=== PATIENT | male | born 1965 | race Caucasian/White ===

== ENCOUNTER 2022-08-01 01:16 | Emergency (ER) | payer OTHER, SELFPAY ==
[2022-08-01 01:17] VITALS: BP 139/78; PULSE 117; RESP 16; TEMP 36.1; O2SAT 98; BMI 35.9
--- NOTE | 2022-08-01 01:30 | CTR_ITS ---
PROCEDURE INFORMATION: Exam: CT Abdomen And Pelvis Without Contrast Exam date and time: 08/01/2022 2:09 AM Age: 56 years old Clinical indication: Patient HX: PT reports suprapubic abd pain starting suddenly at 1700. Feels a lot of pressure and dribbling urine only. Unable to urinate fully. +nausea, no vomiting. ; Additional info: Rule out kidney stone TECHNIQUE: Imaging protocol: Computed tomography of the abdomen and pelvis without contrast. Radiation optimization: All CT scans at this facility use at least one of these dose optimization techniques: automated exposure control; mA and/or kV adjustment per patient size (includes targeted exams where dose is matched to clinical indication); or iterative reconstruction. Other protocol: This patient has received 0 known CTs and 0 known cardiac nuclear medicine studies in the 12 months prior to the current study. COMPARISON: CT lumbar spine w con [id number] 07/28/2016 10:16 AM RADIATION DOSE METRICS: Total DLP (mGy-cm): 1149.89 FINDINGS: Lungs: The visualized lung bases are clear. Diaphragm: Tiny hiatal hernia. Liver: Borderline hepatic steatosis. No discrete mass. Gallbladder and bile ducts: No calcified gallstones or biliary dilation identified. Pancreas: Unremarkable with no suspicious mass. No ductal dilation. Spleen: The spleen is not enlarged. No suspicious mass is noted. Adrenal glands: Normal. No mass. Kidneys and ureters: No solid renal mass or hydronephrosis. Stomach and bowel: Iecc-[id number] sigmoid diverticulosis. No small bowel obstruction, abscess or free air. Appendix: No evidence of appendicitis. Intraperitoneal space: See Urinary bladder finding. Vasculature: Advanced diffuse vascular calcification noted. Lymph nodes: No enlarged lymph nodes. Urinary bladder: A Corona catheter is present in the markedly collapsed bladder. Perivesicular fat stranding. Pelvic fat stranding. Reproductive: Very large prostate. There is fat stranding around it as well. Bones/joints: Severe diffuse thoracolumbar degenerative change. Lower thoracic old-appearing [id number] compressions. Soft tissues: No acute or suspicious finding noted. CT/CT kidney stone [id number] IMPRESSION: 1. Findings may be related to prostatitis/cystitis. Possible secondary proctitis as well. Advise correlation. 2. Corona catheter present in a collapsed bladder. 3. No small bowel obstruction, abscess or free air. 4. Multiple chronic findings above.
--- NOTE | 2022-08-01 01:32 | W.ED.ABDPA2 ---
Documented by User: BENJIE Stoll 08/01/22 02:36 HPI - Abdominal Pain General: Chief Complaint: Abdominal Pain Stated Complaint: UTI, pain Time Seen by Provider: 08/01/22 01:18 History of Present Illness: Patient is a 6-year-old male who presents to the emergency department with complaints of urinary retention, suprapubic abdominal pain. Patient reports he had developed some suprapubic abdominal pain 2 days ago. Was evaluated in the urgent care. Underwent urinalysis which revealed hematuria and evidence of a UTI. Patient was started on antibiotics and discharged home. Patient reports he was working today and last urinated at 1530. Since that time he has had increasing abdominal discomfort and an inability to urinate. Patient denies any flank pain Denies any visible hematuria Patient denies any fevers but has had chills throughout the day. Patient appears very uncomfortable and anxious Associated Symptoms: Reports chills, hematuria (None visible; but reported on urinalysis) and nausea; Denies bloating, constipation, GI cramping, diarrhea, dysuria, fever(s), hematochezia and vomiting Review of Systems General: Reports: 10 or more systems reviewed and unremarkable except in HPI and below Const: Reports: chills; Denies: fever(s), change in appetite, change in weight, fatigue or malaise Eyes: Denies: change in vision, eye discomfort, eye discharge or eye redness ENMT: Denies: throat pain, enlarged tonsils, odynophagia, hoarseness, ear or mastoid pain, ear discharge, change in hearing, tinnitus, nasal discharge, nasal congestion, post nasal drip or sinus pain Card: Denies: chest pain, palpitations, irregular heart rhythm, edema, dyspnea on exertion, orthopnea or leg pain with exertion Resp: Denies: dyspnea, productive cough, non-productive cough, wheezing, stridor or chest congestion GI: Reports: abdominal pain and nausea; Denies: vomiting, dysphagia, diarrhea, constipation, bloating, GI cramping or hematochezia : Reports: difficulty urinating, urinary urgency, urinary hesitancy, urinary dribbling, oliguria and hematuria (None visible; but reported on urinalysis); Denies: flank pain, dysuria or urinary frequency Musc: Denies: neck pain, back pain, extremity pain, joint pain, joint swelling, joint redness, joint warmth or muscle weakness Skin/Breast: Denies: rash, pruritus, erythema, photosensitivity or new lesions Neuro: Denies: headache(s), numbness in extremities, weakness in extremities, sensory changes, lack of coordination, difficulty walking, frequent falls, dizziness, confusion, Slurred speech present, difficulty communicating thoughts, seizure-like activity or involuntary movements Endo: Denies: polyuria, polydipsia or tired all the time Jason/Lymph: Denies: easy bruising or easy bleeding Physical Exam Const: COMMON NORMALS: no acute distress, patient oriented x3 and alert GENERAL APPEARANCE: cooperative ORIENTATION/CONSCIOUSNESS: Yes awake, Yes oriented to person, Yes oriented to place and Yes oriented to time HENMT: COMMON NORMALS: normocephalic and atraumatic HEAD & SCALP: normocephalic and atraumatic FACE & SINUS: normal facial exam MOUTH: Normal oral and palatal mucosa present THROAT: posterior oropharynx normal Eye: COMMON NORMALS: Equal, round and reactive pupils present, EOMs intact bilaterally, conjunctivae normal and no scleral icterus GENERAL EYE: appearance normal, both eyes and all related structures ALIGNMENT: Yes alignment normal PERIORBITAL: periorbital findings normal CONJUNCTIVA: Yes conjunctivae normal PUPIL: Yes Equal, round and reactive pupils present Neck/C-Spine: COMMON NORMALS: full ROM GENERAL: Yes normal visual inspection Lymph: LYMPHATIC: no lymphadenopathy noted Chest: COMMONS NORMALS: normal inspection of the chest Breast/axilla inspection: Yes no chest deformity, asymmetry, normal contours, no nodules, masses, tenderness Resp: COMMON NORMALS: normal respiratory effort, No retractions, No use of accessory muscles and clear to auscultation bilaterally EFFORT & INSPECTION: Yes able to speak in complete sentences and Yes symmetric chest movement AUSCULTATION: clear to auscultation bilaterally Cardio: COMMON NORMALS: regular rate, regular rhythm and Peripheral pulses 2+ throughout RATE: regular rate RHYTHM: regular rhythm PERIPHERAL PULSES: Peripheral pulses 2+ throughout GI: COMMON NORMALS: Normal to inspection, nondistended, normoactive bowel sounds present, Soft to palpation and No hepatosplenomegaly present; negative for non-tender INSPECTION: Yes normal to inspection AUSCULTATION: Yes normoactive bowel sounds PALPATION: Yes Soft to palpation and Yes No hepatosplenomegaly present RECTAL EXAM: Yes deferred : BLADDER/KIDNEY EXAM: Yes other (Bladder scan reveals greater than 1000 cc) Extremity: COMMON NORMALS: normal to inspection GENERAL: Yes normal exam except as noted Neuro: COMMON NORMALS: patient oriented x3 SENSORIUM/ORIENTATION: Yes alert, Yes oriented to person, Yes oriented to place and Yes oriented to time CRANIAL NERVES: Yes CN normal except as noted Psych: COMMON NORMALS: mental status grossly normal, Normal thought process present, cooperative, activity/motor behavior normal, denies homicidal ideation and denies suicidal ideation THOUGHT PROCESS: Normal thought process present Skin: COMMON NORMALS: no rashes or lesions noted, no wounds and turgor normal GENERAL SKIN EXAM: no rashes or lesions noted and turgor normal Course Vital Signs: Vital signs: Vital Signs Temperature 97.0 F L 08/01/22 01:17 Pulse Rate 117 H 08/01/22 01:17 Respiratory Rate 16 08/01/22 01:17 Blood Pressure 139/78 08/01/22 01:17 Pulse Oximetry 98 08/01/22 01:17 Oxygen Delivery Me thod 08/01/22 01:17 MDM - Abdominal Pain Medical Decision Making Patient was evaluated in the emergency department for urinary retention symptoms. Differential diagnoses include UTI, bladder spasm, acute urinary retention, renal stone, I obtained a CT to rule out kidney stone Obtained a bladder scan which revealed over 1000 cc in the bladder Urine specimen sent to lab I obtained CBC and CMP. Positive leukocytosis of 16,000. IV started, Toradol given. P.o. Flomax given Corona placed and we were able to drain his bladder. Immediate resolution of his complaints. We did obtain a CT to rule out kidney stone. Imaging was negative for acute finding. He does have an elevated white blood cell count. We are going to change his antibiotics due to his worsening pneumology and development of urinary retention while taking Cipro 500 mg. Patient will need to discharge home with a Corona and ongoing Flomax but will need to follow-up with his primary care later this week. Patient needs to increase his fluid intake. Lab Data 08/01/22 01:29 08/01/22 01:29 Labs/Radiology: Radiology Impressions Abdomen/Pelvis CT 08/01/22 01:30 IMPRESSION: 1. Findings may be related to prostatitis/cystitis. Possible secondary proctitis as well. Advise correlation. 2. Corona catheter present in a collapsed bladder. 3. No small bowel obstruction, abscess or free air. 4. Multiple chronic findings above. Laboratory Results WBC 16.7 10^3/uL (4.0-10.0) H 08/01/22 01: RBC 5.12 10^6/uL (4.1-5.3) 08/01/22 01: Hgb 15.0 g/dL (11.7-16.6) 08/01/22 01: Hct 44.2 % (42.0-52.0) 08/01/22 01: MCV 86.3 fl (80-94) 08/01/22 01: MCH 29.3 pg (28.0-34.0) 08/01/22 01: MCHC 33.9 g/dL (30.0-36.0) 08/01/22: RDW 13.0 % (12.1-15.1) 08/01/22 01: Plt Count 193 10^3/cmm (130-400) 08/01/22 01: MPV 11.1 fL (7.4-10.4) H 08/01/22 01: Neut % (Auto) 86.8 % 08/01/22 01: Lymph % (Auto) 6.3 % 08/01/22 01: [place] % (Auto) 5.7 % 08/01/22 01: Eos % (Auto) 0.5 % 08/01/22 01: Baso % (Auto) 0.3 % 08/01/22 01: Neut # (Auto) 14.49 10^3/uL (1.8-7.7) H 08/01/22 01: Lymph # (Auto) 1.1 10^3/uL (0.8-4.8) 08/01/22 01: [place] # (Auto) 1.0 10^3/uL (0.2-0.9) H 08/01/22 01: Eos # (Auto) 0.1 10^3/uL (0.0-0.8) 08/01/22 01: Baso # (Auto) 0.1 10^3/uL (0.0-0.1) 08/01/22 01:29 Nucleated RBC % (auto) 0 % 08/01/22 01: Nucleated RBCs # 0.0 /100WBC 08/01/22 01:29 Sodium 133 mmol/L (136-145) L 08/01/22 01:29 Potassium 3.3 mmol/L (3.5-5.1) L 08/01/22 01:29 Chloride 94 mmol/L (98-107) L 08/01/22 01:29 Carbon Dioxide 23 mmol/L (22-29) 08/01/22 01:29 Anion Gap 19.3 (5-19) H 08/01/22 01:29 BUN 26 mg/dL (6-20) H 08/01/22 01:29 Creatinine 1.0 mg/dL (0.7-1.2) 08/01/22 01:29 GFR Calculation 77.9 mL/min (90-130) L 08/01/22 01:29 Glucose 119 mg/dL (65-115) H 08/01/22 01:29 Calculated Osmolality 282 mOsm/kg (285-295) L 08/01/22 01:29 Calcium 9.1 mg/dL (8.5-10.5) 08/01/22 01:29 Total Bilirubin 0.4 mg/dL (0.15-1.2) 08/01/22 01:29 AST 30 U/L (0-40) 08/01/22 01:29 ALT 31 U/L (0-41) 08/01/22 01:29 Alkaline Phosphatase 78 U/L (40-130) 08/01/22 01:29 Total Protein 7.8 g/dL (6.6-8.7) 08/01/22 01:29 Albumin 4.2 g/dL (3.5-5.2) 08/01/22 01:29 Globulin 3.6 g/dL (1.3-4.6) 08/01/22 01:29 Urine Color Yellow (Yellow) 08/01/22 02:11 Urine Appearance Hazy (CLEAR) A 08/01/22 02:11 Urine pH 5 (5-7) 08/01/22 02:11 Ur Specific [place] 1.010 (1.005-1.030) 08/01/22 02:11 Urine Protein 1+ (Negative) H 08/01/22 02:11 Urine Glucose (UA) Norm (Normal) 08/01/22 02:11 Urine Ketones Negative (Negative) 08/01/22 02:11 Urine Blood 3+ (Negative) H 08/01/22 02:11 Urine Nitrate Positive (Negative) H 08/01/22 02:11 Urine Bilirubin 1+ (Negative) H 08/01/22 02:11 Urine Urobilinogen 1 mg/dL (Negative) H 08/01/22 02:11 Ur Leukocyte Esterase Negative (Negative) 08/01/22 02:11 Urine RBC >100 /hpf (0-2) H 08/01/22 02:11 Urine WBC 5-10 /hpf (0-5) H 08/01/22 02:11 Ur Squamous Epith Cells 0-4 /hpf (0-5) H 08/01/22 02:11 Amorphous Sediment Not Reportable 08/01/22 02:11 Urine Bacteria 1+ /hpf (NONE) H 08/01/22 02:11 Urine Mucus 1+ /hpf 08/01/22 02:11 Discharge Plan Discharge Patient Disposition: Home Clinical Impression: Acute urinary retention, Urinary tract infection Condition: Stable Prescriptions: New Flomax 0.4 mg capsule 0.4 mg PO DAILY Qty: 30 0RF Bactrim DS 800-160 mg tablet 1 tab PO Q12H 10 Days Qty: 20 0RF Discharge Orders: Discharge ED (Routine); Ordered 08/01/22 Ordered By: Mateo Hair Referrals: Jose Luis Jimenez MD [Family Provider] - 1-3 days Discharge Diet: Advance as tolerated Discharge Activity: Resume usual activity Patient Instructions: Urinary Retention in Men (ED), Opioid Safety, Pain Management, Urinary Tract Infection - Men Activity Restrictions/Additional Instructions: Please take medications as prescribed Drain your catheter regularly Follow-up with your primary care doctor. Call Wednesday to make an appointment. Coding Level of Care Code ED [employer] Pump Tender for Chg Fwd Documented by User: Mateo Hair, 08/01/22 03:36 HPI - Abdominal Pain General: Chief Complaint: Abdominal Pain Stated Complaint: UTI, pain Time Seen by Provider: 08/01/22 01:18 Course Vital Signs: Vital signs: Vital Signs Temperature 97.0 F L 08/01/22 01:17 Pulse Rate 117 H 08/01/22 01:17 Respiratory Rate 16 08/01/22 01:17 Blood Pressure 139/78 08/01/22 01:17 Pulse Oximetry 98 08/01/22 01:17 Oxygen Delivery Me thod 08/01/22 01:17 MDM - Abdominal Pain Medical Decision Making Patient was evaluated in the emergency department for urinary retention symptoms. Differential diagnoses include UTI, bladder spasm, acute urinary retention, renal stone, I obtained a CT to rule out kidney stone Obtained a bladder scan which revealed over 1000 cc in the bladder Urine specimen sent to lab I obtained CBC and CMP. Positive leukocytosis of 16,000. IV started, Toradol given. P.o. Flomax given Corona placed and we were able to drain his bladder. Immediate resolution of his complaints. We did obtain a CT to rule out kidney stone. Imaging was negative for acute finding. He does have an elevated white blood cell count. We are going to change his antibiotics due to his worsening pneumology and development of urinary retention while taking Cipro 500 mg. Patient will need to discharge home with a Corona and ongoing Flomax but will need to follow-up with his primary care later this week. Patient needs to increase his fluid intake. This patient was originally seen by MITZI Santiago. I agree with her history and evaluation and management. Patient is feeling much better after placement of Corona catheter. CT s scan shows findings consistent with cystitis or prostatitis.. White blood cell count was 16. Lab Data 08/01/22 01:29 08/01/22 01:29 Labs/Radiology: Radiology Impressions Abdomen/Pelvis CT 08/01/22 01:30 IMPRESSION: 1. Findings may be related to prostatitis/cystitis. Possible secondary proctitis as well. Advise correlation. 2. Corona catheter present in a collapsed bladder. 3. No small bowel obstruction, abscess or free air. 4. Multiple chronic findings above. Laboratory Results WBC 16.7 10^3/uL (4.0-10.0) H 08/01/22 01:29 RBC 5.12 10^6/uL (4.1-5.3) 08/01/22 01: Hgb 15.0 g/dL (11.7-16.6) 08/01/22 01: Hct 44.2 % (42.0-52.0) 08/01/22 01: MCV 86.3 fl (80-94) 08/01/22 01: MCH 29.3 pg (28.0-34.0) 08/01/22 01: MCHC 33.9 g/dL (30.0-36.0) 08/01/22 01: RDW 13.0 % (12.1-15.1) 08/01/22 01: Plt Count 193 10^3/cmm (130-400) 08/01/22 01: MPV 11.1 fL (7.4-10.4) H 08/01/22 01: Neut % (Auto) 86.8 % 08/01/22 01: Lymph % (Auto) 6.3 % 08/01/22 01: [place] % (Auto) 5.7 % 08/01/22 01: Eos % (Auto) 0.5 % 08/01/22 01: Baso % (Auto) 0.3 % 08/01/22 01: Neut # (Auto) 14.49 10^3/uL (1.8-7.7) H 08/01/22 01: Lymph # (Auto) 1.1 10^3/uL (0.8-4.8) 08/01/22 01: [place] # (Auto) 1.0 10^3/uL (0.2-0.9) H 08/01/22 01: Eos # (Auto) 0.1 10^3/uL (0.0-0.8) 08/01/22 01: Baso # (Auto) 0.1 10^3/uL (0.0-0.1) 08/01/22 01: Nucleated RBC % (auto) 0 % 08/01/22 01: Nucleated RBCs # 0.0 /100WBC 08/01/22 01: Sodium 133 mmol/L (136-145) L 08/01/22 01:29 Potassium 3.3 mmol/L (3.5-5.1) L 08/01/22 01:29 Chloride 94 mmol/L (98-107) L 08/01/22 01:29 Carbon Dioxide 23 mmol/L (22-29) 08/01/22 01:29 Anion Gap 19.3 (5-19) H 08/01/22 01:29 BUN 26 mg/dL (6-20) H 08/01/22 01:29 Creatinine 1.0 mg/dL (0.7-1.2) 08/01/22 01:29 GFR Calculation 77.9 mL/min (90-130) L 08/01/22 01:29 Glucose 119 mg/dL (65-115) H 08/01/22 01:29 Calculated Osmolality 282 mOsm/kg (285-295) L 08/01/22 01:29 Calcium 9.1 mg/dL (8.5-10.5) 08/01/22 01:29 Total Bilirubin 0.4 mg/dL (0.15-1.2) 08/01/22 01:29 AST 30 U/L (0-40) 08/01/22 01:29 ALT 31 U/L (0-41) 08/01/22 01:29 Alkaline Phosphatase 78 U/L (40-130) 08/01/22 01:29 Total Protein 7.8 g/dL (6.6-8.7) 08/01/22 01:29 Albumin 4.2 g/dL (3.5-5.2) 08/01/22 01:29 Globulin 3.6 g/dL (1.3-4.6) 08/01/22 01:29 Urine Color Yellow (Yellow) 08/01/22 02:11 Urine Appearance Hazy (CLEAR) A 08/01/22 02:11 Urine pH 5 (5-7) 08/01/22 02:11 Ur Specific [place] 1.010 (1.005-1.030) 08/01/22 02:11 Urine Protein 1+ (Negative) H 08/01/22 02:11 Urine Glucose (UA) Norm (Normal) 08/01/22 02:11 Urine Ketones Negative (Negative) 08/01/22 02:11 Urine Blood 3+ (Negative) H 08/01/22 02:11 Urine Nitrate Positive (Negative) H 08/01/22 02:11 Urine Bilirubin 1+ (Negative) H 08/01/22 02:11 Urine Urobilinogen 1 mg/dL (Negative) H 08/01/22 02:11 Ur Leukocyte Esterase Negative (Negative) 08/01/22 02:11 Urine RBC >100 /hpf (0-2) H 08/01/22 02:11 Urine WBC 5-10 /hpf (0-5) H 08/01/22 02:11 Ur Squamous Epith Cells 0-4 /hpf (0-5) H 08/01/22 02:11 Amorphous Sediment Not Reportable 08/01/22 02:11 Urine Bacteria 1+ /hpf (NONE) H 08/01/22 02:11 Urine Mucus 1+ /hpf 08/01/22 02:11 Discharge Plan Discharge Patient Disposition: Home Clinical Impression: Acute urinary retention, Urinary tract infection Condition: Stable Prescriptions: New Flomax 0.4 mg capsule 0.4 mg PO DAILY Qty: 30 0RF Bactrim DS 800-160 mg tablet 1 tab PO Q12H 10 Days Qty: 20 0RF Discharge Orders: Discharge ED (Routine); Ordered 08/01/22 Ordered By: Mateo Hair Referrals: Jose Luis Jimenez MD [Family Provider] - 1-3 days Discharge Diet: Advance as tolerated Discharge Activity: Resume usual activity Patient Instructions: Urinary Retention in Men (ED), Opioid Safety, Pain Management, Urinary Tract Infection - Men Activity Restrictions/Additional Instructions: Please take medications as prescribed Drain your catheter regularly Follow-up with your primary care doctor. Call Wednesday to make an appointment. Coding Level of Care Code ED [employer] Pump Tender for Jessica Perry
[2022-08-01] MEDS: tamsulosin 0.4 mg Capsule PO (01:43)
[2022-08-01] MEDS: ketorolac 30 mg/mL INJ IVP (01:43)
[2022-08-01 01:47] LABS: Basophils # 0.1 10^3/uL (0.0-0.1); Basophils % 0.3 %; Eosinophils # 0.1 10^3/uL (0.0-0.8); Eosinophils % 0.5 %; Hematocrit 44.2 % (42.0-52.0); Lymphocytes # 1.1 10^3/uL (0.8-4.8); Lymphocytes % 6.3 %; Mean Corpuscular HGB Conc 33.9 g/dL (30.0-36.0); Mean Corpuscular Hemoglobin 29.3 pg (28.0-34.0); Mean Corpuscular Volume 86.3 fl (80-94); Mean Platelet Volume 11.1 fL (7.4-10.4); Monocytes % 5.7 %; Neutrophils # 14.49 10^3/uL (1.8-7.7); Neutrophils % 86.8 %; Nucleated Red Blood Cells % 0 %; Platelet Count 193 10^3/cmm (130-400); Red Blood Count 5.12 10^6/uL (4.1-5.3); White Blood Count 16.7 10^3/uL (4.0-10.0)
[2022-08-01] MEDS: lidocaine 2% Urojet 20 mL TOPICAL (01:48)
[2022-08-01 01:55] LABS: Alanine Aminotransferase 31 U/L (0-41); Albumin Level 4.2 g/dL (3.5-5.2); Alkaline Phosphatase 78 U/L (40-130); Anion Gap 19.3 (5-19); Aspartate Amino Transferase 30 U/L (0-40); Blood Urea Nitrogen 26 mg/dL (6-20); Calcium 9.1 mg/dL (8.5-10.5); Carbon Dioxide 23 mmol/L (22-29); Chloride 94 mmol/L (98-107); Globulin 3.6 g/dL (1.3-4.6); Glomerular Filtration Rate 77.9 mL/min (90-130); Glucose 119 mg/dL (65-115); Osmolality Calculated 282 mOsm/kg (285-295); Potassium 3.3 mmol/L (3.5-5.1); Sodium 133 mmol/L (136-145); Total Bilirubin 0.4 mg/dL (0.15-1.2); Total Protein 7.8 g/dL (6.6-8.7)
[2022-08-01 02:23] VITALS: BP 133/71; PULSE 96; O2SAT 96
[2022-08-01] MEDS: sodium chloride 0.9% 1,000 ML 999 ML IV (02:29)
[2022-08-01 02:37] LABS: Add Urine Microscopic? YES; Bilirubin Urine 1+ (Negative); Blood Urine 3+ (Negative); Glucose Urine UA Norm (Normal); Ketones Urine Negative (Negative); Leukocyte Esterase Urine Negative (Negative); Nitrate Urine Positive (Negative); Protein Urine 1+ (Negative); Urine Appearance Hazy (CLEAR); Urine Color Yellow (Yellow); Urobilinogen Urine 1 mg/dL (Negative); pH Urine 5 (5-7)
[2022-08-01 02:39] LABS: RBC Urine >100 /hpf (0-2)
[2022-08-01 02:40] LABS: Add Urine Culture? Yes; Bacteria Urine 1+ /hpf; Mucus Urine 1+ /hpf; Squamous Epithelial Cell Urine 0-4 /hpf (0-5)
[2022-08-01] MEDS: sulfamethoxazole-trimeth DS 160-800 mg Tablet 1 TAB PO (02:42)
[2022-08-01 03:30] VITALS: BP 149/76; PULSE 95; O2SAT 96
--- NOTE | 2022-08-03 09:32 | DCPLANNER ---
Addendum entered by Jeana Justin 08/20/22 07:53: Patient had a follow up appointment scheduled with urology - patient did attend appointment. Addendum entered by Jeana Justin 08/05/22 13:34: Patient has a follow up appointment scheduled for Sunday, August 07, 2022 at 1:[address] Eaton at urology. Clinic will call patient with appointment information. Original Note: environmental manager had message to schedule a follow up appointment for patient with urology. environmental manager sent patients information to the front office staff at urology. Patients information will be printed and reviewed. Clinic will call patient with appointment information.
== END 2022-08-01 03:50 | disposition home or self-care (01) ==
PROVIDERS: Nurse Practitioner; Emergency Provider Emergency Medicine; Family Provider Family Medicine
DX: N39.0 Urinary tract infection, site not specified (principal); R33.9 Retention of urine, unspecified
CPT/HCPCS: 51702; 51798; 74176; 80053; 81001; 85025; 87086; 96361; 96374; 99285; J1885; J7030

== ENCOUNTER 2022-08-04 05:20 | Emergency (ER) | payer OTHER, SELFPAY ==
[2022-08-04 05:35] VITALS: BP 129/90; PULSE 109; RESP 18; TEMP 36.6; O2SAT 96; BMI 35.9
--- NOTE | 2022-08-04 06:10 | W.ED.MALEGU ---
HPI - Male Genitourinary General: Chief complaint: Urogenital-Male Stated complaint: unable to pee Time Seen by Provider: 08/04/22 05:22 Source: patient Mode of arrival: ambulatory History of Present Illness: 56-year-old male presents to the emergency room with difficulty with urination. He states the symptoms began 5 days ago he was at home and had difficult time urinating generally not feeling well ultimately went in to a walk-in clinic was started on ciprofloxacin. Initially was seen in outside clinic I do not have copies of those records or if any urine culture was done at that time. He started the Cipro unfortunately over the next couple of days he worsened and was seen in the emergency room in the early childhood assistant hours of August 01. He was seen by midlevel and by Dr. Hair at that point he had 2000 mL in his bladder a Coroan catheter was placed for acute urinary retention a CT was done which showed evidence of prostatitis and cystitis. His antibiotics were changed to Bactrim. Yesterday on the patient had a Corona catheter removed by his primary care doctor and unfortunately has not been able to urinate since. He is currently taking Bactrim and Flomax 0.4 nightly he has not previously had difficulty with his urinary retention. No fever sweats or chills. Onset (ago): day(s) (5) Duration: constant Location: abdomen Severity: moderate Quality: aching Relieving factors: urination Associated symptoms: Reports dysuria and urinary retention; Deny discharge, fevers/chills, hematuria, nausea, rash, swelling, urinary incontinence, mass or vomiting Review of Systems Const: Denies: fever(s), chills, body aches, change in appetite, fatigue or malaise ENMT: Denies: throat pain, ear or mastoid pain, nasal discharge or nasal congestion Card: Denies: chest pain, edema, dyspnea on exertion or orthopnea Resp: Denies: dyspnea, productive cough or non-productive cough GI: Denies: nausea or vomiting : Reports: difficulty urinating, dysuria, urinary dribbling, difficulty starting urination and oliguria; Denies: flank pain, urinary incontinence or hematuria Musc: Denies: back pain Skin/Breast: Denies: rash or pruritus PFS ED PFSH: Medical History (Updated 08/04/22 @ 06:20 by Michael Palumbo DO) Acute urinary retention Prostatitis Urinary tract infection Physical Exam Const: GENERAL APPEARANCE: cooperative ORIENTATION/CONSCIOUSNESS: Yes awake, Yes oriented to person, Yes oriented to place and Yes oriented to time HENMT: COMMON NORMALS: normocephalic, atraumatic and hearing grossly normal bilaterally HEAD & SCALP: normocephalic and atraumatic Resp: COMMON NORMALS: normal respiratory effort, No retractions, No use of accessory muscles and clear to auscultation bilaterally AUSCULTATION: clear to auscultation bilaterally Cardio: COMMON NORMALS: regular rate, regular rhythm and No murmurs present (Cardio) RATE: regular rate RHYTHM: regular rhythm GI: COMMON NORMALS: Soft to palpation and No hepatosplenomegaly present AUSCULTATION: Yes normoactive bowel sounds PALPATION: Yes Soft to palpation, No Tenderness to palpation present (GI), No Guarding due to palpation present (GI) and Yes No hepatosplenomegaly present OTHER: Corona placed by staff prior to my examination of the patient. Bladder was already decompressed and nontender had over 800 in the Corona bag at the time I examined him Extremity: COMMON NORMALS: normal to inspection, capillary refill normal, no clubbing, cyanosis or edema, no calf tenderness and no pedal edema Neuro: SENSORIUM/ORIENTATION: Yes oriented to person, Yes oriented to place and Yes oriented to time Skin: COMMON NORMALS: no rashes or lesions noted GENERAL SKIN EXAM: no rashes or lesions noted Course Vital Signs: Vital signs: Vital Signs Temperature 97.9 F 08/04/22 05:35 Pulse Rate 109 H 08/04/22 05:35 Respiratory Rate 18 08/04/22 05:35 Blood Pressure 129/90 08/04/22 05:35 Pulse Oximetry 96 08/04/22 05:35 Oxygen Delivery Me thod 08/04/22 05:35 MDM - Male Medical Decision Making Acute urinary retention prostatitis. I did not repeat his CT. I think his main issue at this point is Corona catheter will need to remain in for a longer period of time than it was. We will increase his Flomax to 0.8. Urine culture at the earlier visit had no gross. At this point I would leave him on the Bactrim. Corona catheter should remain in until he follows up with urology food operations manager will make arrangements for urology follow-up. Medical Records I reviewed the patient's medical records. Lab Data I reviewed the patient's lab results. 08/04/22 06:10 08/04/22 06:10 Laboratory Results WBC 9.7 10^3/uL (4.0-10.0) 08/04/22 06:10 RBC 5.27 10^6/uL (4.1-5.3) 08/04/22 06:10 Hgb 15.2 g/dL (11.7-16.6) 08/04/22 06:10 Hct 44.3 % (42.0-52.0) 08/04/22 06:10 MCV 84.1 fl (80-94) 08/04/22 06:10 MCH 28.8 pg (28.0-34.0) 08/04/22 06:10 MCHC 34.3 g/dL (30.0-36.0) 08/04/22 06:10 RDW 13.2 % (12.1-15.1) 08/04/22 06:10 Plt Count 281 10^3/cmm (130-400) 08/04/22 06:10 MPV 10.3 fL (7.4-10.4) 08/04/22 06:10 Neut % (Auto) 65.9 % 08/04/22 06:10 Lymph % (Auto) 20.1 % 08/04/22 06:10 [place] % (Auto) 11.2 % 08/04/22 06:10 Eos % (Auto) 1.3 % 08/04/22 06:10 Baso % (Auto) 0.5 % 08/04/22 06:10 Neut # (Auto) 6.40 10^3/uL (1.8-7.7) 08/04/22 06:10 Lymph # (Auto) 2.0 10^3/uL (0.8-4.8) 08/04/22 06:10 [place] # (Auto) 1.1 10^3/uL (0.2-0.9) H 08/04/22 06:10 Eos # (Auto) 0.1 10^3/uL (0.0-0.8) 08/04/22 06:10 Baso # (Auto) 0.1 10^3/uL (0.0-0.1) 08/04/22 06:10 Nucleated RBC % (auto) 0 % 08/04/22 06:10 Nucleated RBCs # 0.0 /100WBC 08/04/22 06:10 Sodium 133 mmol/L (136-145) L 08/04/22 06:10 Potassium 3.6 mmol/L (3.5-5.1) 08/04/22 06:10 Chloride 93 mmol/L (98-107) L 08/04/22 06:10 Carbon Dioxide 23 mmol/L (22-29) 08/04/22 06:10 Anion Gap 20.6 (5-19) H 08/04/22 06:10 BUN 16 mg/dL (6-20) 08/04/22 06:10 Creatinine 0.9 mg/dL (0.7-1.2) 08/04/22 06:10 GFR Calculation 87.9 mL/min (90-130) L 08/04/22 06:10 Glucose 101 mg/dL (65-115) 08/04/22 06:10 Calculated Osmolality 277 mOsm/kg (285-295) L 08/04/22 06:10 Calcium 9.2 mg/dL (8.5-10.5) 08/04/22 06:10 Discharge Plan Discharge Patient Disposition: Home Clinical Impression: Prostatitis, Acute urinary retention Condition: Stable Prescriptions: Changed Flomax 0.4 mg capsule 0.8 mg PO DAILY Qty: 60 0RF No Action Bactrim DS 800-160 mg tablet 1 tab PO Q12H 10 Days Qty: 20 0RF Discharge Orders: Discharge ED (Routine); Ordered 08/04/22 Ordered By: Michael Palumbo Referrals: Jose Luis Jimenez MD [Primary Care Provider] - Discharge Diet: Usual diet Discharge Activity: Increase activity as tolerated Patient Instructions: Prostatitis (ED), Urinary Retention in Men (ED), Opioid Safety, Pain Management Activity Restrictions/Additional Instructions: You are seen today for acute urinary retention prostatitis. Urinary retention is caused by prostatitis continue the current antibiotic increase your Flomax to 2 capsules at bedtime. food operations manager will make arrangements for follow-up with urology sometime within the next week. Coding Level of Care Code ED [place] Supervisor for Jessica Perry
[2022-08-04 06:18] LABS: Basophils # 0.1 10^3/uL (0.0-0.1); Basophils % 0.5 %; Eosinophils # 0.1 10^3/uL (0.0-0.8); Eosinophils % 1.3 %; Hematocrit 44.3 % (42.0-52.0); Hemoglobin 15.2 g/dL (11.7-16.6); Lymphocytes % 20.1 %; Mean Corpuscular HGB Conc 34.3 g/dL (30.0-36.0); Mean Corpuscular Hemoglobin 28.8 pg (28.0-34.0); Mean Corpuscular Volume 84.1 fl (80-94); Mean Platelet Volume 10.3 fL (7.4-10.4); Monocytes # 1.1 10^3/uL (0.2-0.9); Monocytes % 11.2 %; Neutrophils % 65.9 %; Nucleated Red Blood Cells % 0 %; Platelet Count 281 10^3/cmm (130-400); Red Blood Count 5.27 10^6/uL (4.1-5.3); Red Cell Distribution Width 13.2 % (12.1-15.1); White Blood Count 9.7 10^3/uL (4.0-10.0)
[2022-08-04 06:38] LABS: Anion Gap 20.6 (5-19); Blood Urea Nitrogen 16 mg/dL (6-20); Calcium 9.2 mg/dL (8.5-10.5); Carbon Dioxide 23 mmol/L (22-29); Chloride 93 mmol/L (98-107); Creatinine Clr Calc Pharmacy 125.6035; Glomerular Filtration Rate 87.9 mL/min (90-130); Glucose 101 mg/dL (65-115); Osmolality Calculated 277 mOsm/kg (285-295); Potassium 3.6 mmol/L (3.5-5.1); Sodium 133 mmol/L (136-145)
--- NOTE | 2022-08-04 09:17 | DCPLANNER ---
Addendum entered by Jeana Justin 08/20/22 08:02: Patient had a follow up appointment scheduled with urology - patient did attend appointment. Addendum entered by Jeana Justin 08/05/22 11:12: Patient has a follow up appointment scheduled for Sunday, August 14, 2022 at 8:[address] Eaton at urology. Clinic will call patient with appointment information. Original Note: manager disaster recovery had message to schedule a follow up appointment for patient with urology. manager disaster recovery sent patients information to the front office staff at urology. Patients information will be printed and reviewed. Clinic will call patient with appointment information.
== END 2022-08-04 07:22 | disposition home or self-care (01) ==
PROVIDERS: Emergency Provider Family Medicine; PCP Family Medicine
DX: R33.9 Retention of urine, unspecified (principal); N41.9 Inflammatory disease of prostate, unspecified; Z87.440 Personal history of urinary (tract) infections
CPT/HCPCS: 51702; 80048; 85025; 99283

== ENCOUNTER 2023-10-24 03:23 | Emergency (ER) | payer OTHER, SELFPAY ==
--- NOTE | 2023-10-24 03:27 | ECG_ITS ---
[facility] Test Date: 2023-10-24 Pat Name: Pineda Brantley Department: Room: Gender: Male Condominium Manager: : 1965 Requested By: Mateo Mercado Order Number: [id number] Giovanna MD: Joseph Kline M.D. Measurements Intervals [place] Rate: 85 P: 59 IL: 137 QRS: 64 QRSD: 86 T: 60 QT: 362 QTc: 432 Interpretive Statements SINUS RHYTHM WITH SINUS ARRHYTHMIA No previous ECG available for comparison Electronically Signed On 10-24-2023 12:02:38 CDT by Joseph Kline M.D. [id number]
[2023-10-24 03:35] VITALS: BP 144/89; PULSE 80; RESP 18; TEMP 36.4; O2SAT 99
[2023-10-24 04:14] VITALS: BP 150/117; PULSE 80; RESP 15; O2SAT 96
--- NOTE | 2023-10-24 04:28 | XRR_ITS ---
PROCEDURE INFORMATION: Exam: XR Chest Exam date and time: 10/24/2023 4:30 AM Age: 58 years old Clinical indication: Chest pressure; Patient HX: C/O chest pain; Additional info: Cp TECHNIQUE: Imaging protocol: Radiologic exam of the chest. Views: 1 view. COMPARISON: CT kidney stone [id number] 08/01/2022 2:09 AM FINDINGS: Lungs: No consolidation. Pleural spaces: Unremarkable. No pleural effusion. No pneumothorax. Heart/Mediastinum: No cardiomegaly. Bones/joints: No acute fracture. Surgical clips project over the neck tissues in the midline. XR/XR chest 1V portable [id number] IMPRESSION: No acute findings.
[2023-10-24 04:38] VITALS: BP 134/98; PULSE 83; RESP 14; O2SAT 95
[2023-10-24 04:40] LABS: Basophils # 0.1 10^3/uL (0.0-0.1); Basophils % 0.8 %; Eosinophils # 0.2 10^3/uL (0.0-0.8); Eosinophils % 2.9 %; Hematocrit 46.6 % (37-53); Lymphocytes # 2.2 10^3/uL (0.8-4.8); Mean Corpuscular HGB Conc 33.3 g/dL (30-55); Mean Corpuscular Hemoglobin 29.5 pg (27-33); Mean Corpuscular Volume 88.6 fl (82-101); Mean Platelet Volume 10.7 fL (7.4-10.4); Monocytes # 0.7 10^3/uL (0.2-0.9); Monocytes % 8.8 %; Neutrophils # 4.83 10^3/uL (1.8-7.7); Neutrophils % 60.4 %; Nucleated Red Blood Cells % 0 %; Platelet Count 246 10^3/cmm (157-399); Red Blood Count 5.26 10^6/uL (3.85-5.65); Red Cell Distribution Width 13.5 % (12.1-15.1); White Blood Count 7.99 10^3/uL (3.29-11.43)
[2023-10-24 05:02] LABS: Troponin(5th) Baseline 10 ng/L (0-15)
[2023-10-24 05:11] LABS: Alanine Aminotransferase 33 U/L (0-41); Albumin Level 4.3 g/dL (3.5-5.2); Alkaline Phosphatase 68 U/L (40-130); Aspartate Amino Transferase 21 U/L (0-40); Blood Urea Nitrogen 20 mg/dL (6-20); Calcium 9.1 mg/dL (8.5-10.5); Carbon Dioxide 27 mmol/L (22-29); Chloride 100 mmol/L (98-107); Creatinine Clr Calc Pharmacy 139.3408; Globulin 2.8 g/dL (1.3-4.6); Glucose 114 mg/dL (65-115); NT Pro B Type Natriuretic Pept < 36 pg/mL (0-125); Osmolality Calculated 287 mOsm/kg (285-295); Sodium 137 mmol/L (136-145); Total Bilirubin 0.2 mg/dL (0.15-1.2); Total Protein 7.1 g/dL (6.6-8.7)
--- NOTE | 2023-10-24 05:26 | ED_ITS ---
HPI - Chest Pain 2 General: Chief Complaint: Chest Pain Stated Complaint: Chest Pain Time Seen by Provider: 10/24/23 04:19 History of Present Illness: 58-year-old male with no prior history o f coronary disease. He does have a history of hypertension. He presents with left-sided chest discomfort that radiates into his back and up to the shoulder on and off for the past couple of weeks. It was worse this morning and woke him up. He is mildly short of breath with it. Associated symptoms: Deny abdominal pain, dyspnea, fever(s), palpitations or vomiting Review of Systems 2 Const: Denies: fever(s) or chills ENMT: Denies: throat pain Card: Reports: chest pain; Denies: palpitations Resp: Denies: dyspnea, productive cough or non-productive cough GI: Denies: abdominal pain or vomiting PFSH ED 2 PFSH: Medical History Acute urinary retention BPH loc w urin obs/LUTS Prostatitis Urinary tract infection Family History Mother Hypertension COPD (chronic obstructive pulmonary disease) Father , IN HIS 40'S Heart attack Social History Smoking and tobacco/nicotine status: current every day tobacco/nicotine user smokeless tobacco Alcohol intake: never Marital status: Current occupational status: employed Physical Exam 2 Const: COMMON NORMALS: no acute distress GENERAL APPEARANCE: cooperative; not ill appearing and not frail appearing HENMT: COMMON NORMALS: normocephalic, atraumatic and Normal external nose present HEAD & SCALP: normocephalic and atraumatic FACE & SINUS: normal facial exam and face symmetric NOSE: Normal external nose present Eye: COMMON NORMALS: Equal, round and reactive pupils present and EOMs intact bilaterally PUPIL: Yes Equal, round and reactive pupils present Neck/C-Spine: GENERAL: Yes trachea midline Chest: CHEST: Yes Symmetrical chest wall rise and Yes tenderness (Left lateral) Resp: COMMON NORMALS: normal respiratory effort, No retractions, No use of accessory muscles and clear to auscultation bilaterally AUSCULTATION: clear to auscultation bilaterally Cardio: COMMON NORMALS: regular rate and regular rhythm RATE: regular rate RHYTHM: regular rhythm GI: COMMON NORMALS: Normal to inspection, nondistended, normoactive bowel sounds present Extremity: COMMON NORMALS: no pedal edema Neuro: ALDAIR COMA SCALE: document GCS findings [place] coma scale eye opening: Spontaneous [place] coma scale verbal response: Orientated [place] coma scale motor response: Obey commands [place] coma scale total score: 15 S ENSORY EXAM: Yes extremities (intact) Psych: COMMON NORMALS: speech normal SPEECH: Yes normal speech Skin: COMMON NORMALS: no rashes or lesions noted GENERAL SKIN EXAM: no rashes or lesions noted Course 2 Vital Signs: Vital signs: Vital Signs Temperature 97.6 F 10/24/23 03:35 Pulse Rate 85 10/24/23 05:40 Respiratory Rate 16 10/24/23 05:40 Blood Pressure 127/81 10/24/23 05:40 Pulse Oximetry 95 10/24/23 05:40 Oxygen Delivery Me thod Room Air 10/24/23 03:35 MDM - Chest Pain Medical Decision Making 58-year-old male with chest discomfort that is reproducible on exam. It has been there on and off for 2 weeks. CBC is normal. BMP is normal. Troponin is 10. BNP is less than 36. Chest x-ray is not remarkable. Pain is mildly reproducible on palpation of his left chest. Electrocardiogram reveals sinus rhythm with a rate of 85. There are no acute ST wave changes. As this pain has been going on for 2 weeks, is reproducible, and he has negative troponin with no EKG changes he will be allowed discharge. Lab Data 10/24/23 04:09 10/24/23 04:09 Radiology Impressions Chest X-Ray 10/24/23 04:28 IMPRESSION: No acute findings. Laboratory Results WBC 7.99 10^3/uL (3.29-11.43) 10/24/23 04:09 RBC 5.26 10^6/uL (3.85-5.65) 10/24/23 04:09 Hgb 15.50 g/dL (11.27-16.99) 10/24/23 04:09 Hct 46.6 % (37-53) 10/24/23 04:09 MCV 88.6 fl (82-101) 10/24/23 04:09 MCH 29.5 pg (27-33) 10/24/23 04:09 MCHC 33.3 g/dL (30-55) 10/24/23 04:09 RDW 13.5 % (12.1-15.1) 10/24/23 04:09 Plt Count 246 10^3/cmm (157-399) 10/24/23 04:09 MPV 10.7 fL (7.4-10.4) H 10/24/23 04:09 Neut % (Auto) 60.4 % 10/24/23 04:09 Lymph % (Auto) 27.0 % 10/24/23 04:09 [place] % (Auto) 8.8 % 10/24/23 04:09 Eos % (Auto) 2.9 % 10/24/23 04:09 Baso % (Auto) 0.8 % 10/24/23 04:09 Neut # (Auto) 4.83 10^3/uL (1.8-7.7) 10/24/23 04:09 Lymph # (Auto) 2.2 10^3/uL (0.8-4.8) 10/24/23 04:09 [place] # (Auto) 0.7 10^3/uL (0.2-0.9) 10/24/23 04:09 Eos # (Auto) 0.2 10^3/uL (0.0-0.8) 10/24/23 04:09 Baso # (Auto) 0.1 10^3/uL (0.0-0.1) 10/24/23 04:09 Nucleated RBC % (auto) 0 % 10/24/23 04:09 Nucleated RBCs # 0.0 /100WBC 10/24/23 04:09 Sodium 137 mmol/L (136-145) 10/24/23 04:09 Potassium 4.0 mmol/L (3.5-5.1) 10/24/23 04:09 Chloride 100 mmol/L (98-107) 10/24/23 04:09 Carbon Dioxide 27 mmol/L (22-29) 10/24/23 04:09 Anion Gap 14.0 (5-19) 10/24/23 04:09 BUN 20 mg/dL (6-20) 10/24/23 04:09 Creatinine 0.8 mg/dL (0.7-1.2) 10/24/23 04:09 GFR Calculation 100.0 mL/min (90-130) 10/24/23 04:09 Glucose 114 mg/dL (65-115) 10/24/23 04:09 Calculated Osmolality 287 mOsm/kg (285-295) 10/24/23 04:09 Calcium 9.1 mg/dL (8.5-10.5) 10/24/23 04:09 Total Bilirubin 0.2 mg/dL (0.15-1.2) 10/24/23 04:09 AST 21 U/L (0-40) 10/24/23 04:09 ALT 33 U/L (0-41) 10/24/23 04:09 Alkaline Phosphatase 68 U/L (40-130) 10/24/23 04:09 Troponin T Baseline 10 ng/L (0-15) 10/24/23 04:09 NT-Pro-B Natriuret Pep < 36 pg/mL (0-125) 10/24/23 04:09 Total Protein 7.1 g/dL (6.6-8.7) 10/24/23 04:09 Albumin 4.3 g/dL (3.5-5.2) 10/24/23 04:09 Globulin 2.8 g/dL (1.3-4.6) 10/24/23 04:09 All radiology interpretation(s) finalized by discharge Discharge Plan Discharge Patient Disposition: Home Clinical Impression: Chest pain Condition: Stable Prescriptions: New ketorolac 10 mg tablet 10 mg PO TID PRN (Reason: pain) Qty: 12 0RF No Action allopurinol 100 mg tablet 100 mg PO DAILY meloxicam 15 mg tablet 15 mg PO DAILY lisinopril 5 mg tablet 5 mg PO DAILY hydrocodone-acetaminophen 7.5-325 mg tablet 1 tab PO BID PRN amlodipine 10 mg tablet 10 mg PO DAILY Flomax 0.4 mg capsule 0.8 mg PO Q24H Qty: 60 12RF Discharge Orders: Discharge ED (Routine); Ordered 10/24/23 Ordered By: Mateo aHir Referrals: Jose Luis Jimenez MD [Primary Care Provider] - Patient Instructions: Chest Wall Pain (ED), Opioid Safety, Pain Management Activity Restrictions/Additional Instructions: Workup for your chest discomfort this morning did not reveal a cause related to your heart or lungs. Pain is localized to your chest wall. Medication as directed. Do not take other anti-inflammatories while on this medication. Gentle stretching may help as well. Return for worsening pain despite treatment, shortness of breath worsening despite treatment, fever, cough, other concerning symptoms. Coding Level of Care Code ED Seafood Process Worker for Jessica Perry
[2023-10-24] MEDS: ketorolac 30 mg/mL INJ IVP (05:36)
[2023-10-24] MEDS: ondansetron 2 mg/ML SDV 2 mL 4 MG IVP (05:37)
[2023-10-24 05:40] VITALS: BP 127/81; PULSE 85; RESP 16; O2SAT 95
== END 2023-10-24 05:40 | disposition home or self-care (01) ==
PROVIDERS: Emergency Provider Emergency Medicine; PCP Family Medicine
DX: R07.9 Chest pain, unspecified (principal); F17.220 Nicotine dependence, chewing tobacco, uncomplicated
CPT/HCPCS: 71045; 80053; 83880; 84484; 85025; 93005; 96374; 96375; 99285; J1885; J2405